=== PATIENT | male | born 1945 | race Two or more races ===

== ENCOUNTER 2019-01-11 08:47 | Emergency (ER) | payer OTHER ==
[~2019-01-11] VITALS: Ht 177.8 cm; Wt 83.5 kg
== END 2019-01-11 11:49 | disposition home or self-care (01) ==
LOC: ER 08:47
DX: L56.8 Other specified acute skin changes due to ultraviolet radiation (principal); X32.XXXA Exposure to sunlight, initial encounter; Y93.89 Activity, other specified; Y92.89 Other specified places as the place of occurrence of the external cause; Y99.8 Other external cause status